=== PATIENT | male | born 1955 | race Caucasian/White ===

== ENCOUNTER 2016-07-31 13:15 | Outpatient (CLI) | payer OTHER ==
--- NOTE | 2016-07-31 15:35 | Diagnostic Imaging Report ---
NAPOLEON FRENCH [facility] [id number] [facility].[address] [address] Report Submission Date: Jul 31, 2016 2:13:11 PM CDT Patient Study Name: AKI ARAUJO Date: Jul 31, 2016 1:27:06 PM CDT Modality Type: CR Gender: M Description: CHEST : 53 Institution: [facility] Physician: NAPOLEON FRENCH Chest PA and lateral views Clinical history: Persistent cough for 6 months Normal heart shadow and mediastinum, lungs are clear without acute infiltrate or pleural effusion. Normal bony thorax. Impression : No active pulmonary pathology Electronically signed on Jul 31, 2016 2:13:11 PM CDT by: Martinez PERERA
== END 2016-07-31 13:16 ==
LOC: RAD 13:15
PROVIDERS: ATTEND Family Medicine
DX: R05 Cough (principal)
CPT/HCPCS: 71020